=== PATIENT | male | born 1940 | race Caucasian/White ===

== ENCOUNTER 2016-12-23 07:32 | Outpatient (CLI) | payer MEDICARE, BC ==
[2016-12-23 08:35] LABS: ALT (SGPT) 25 U/L (0-55); AST (SGOT) 30 U/L (5-34); Albumin 3.8 g/dL (3.4-4.8); Alkaline Phosphatase 60 U/L (40-150); Anion Gap 14 mmol/L (10-20); BUN (Urea Nitrogen) 18 mg/dL (8.4-25.7); Bilirubin, Total 0.4 mg/dL (0.2-1.2); Calc. Creatinine Clearance 0 mL/min (70-130); Carbon Dioxide 25 mmol/L (23-31); Cardiac Risk 3.1 (Less than 4.5); Chloride 104 mmol/L (98-107); Cholesterol 118 mg/dL (< 200 Desired); Estimated GFR-MDRD 84; Globulin 2.7 g/dL (2.4-3.5); Glucose 99 mg/dL (83-110); HDL Cholesterol 38 mg/dL (>60 Neg Risk); LDL Cholesterol, Calculated 56 mg/dL; Potassium 4.2 mmol/L (3.5-5.1); Protein, Total 6.5 g/dL (5.8-8.1); Sodium 139 mmol/L (136-145); Triglycerides 121 mg/dL (Less than 150)
== END 2016-12-23 07:33 | disposition home or self-care (01) ==
LOC: MADLAB 07:32
PROVIDERS: ATTEND Internal Medicine Cardiovascular Disease
DX: E78.00 Pure hypercholesterolemia, unspecified (principal); I10 Essential (primary) hypertension
CPT/HCPCS: 36415; 80053; 80061

== ENCOUNTER 2017-06-30 08:18 | Outpatient (CLI) | payer MEDICARE, BC ==
[2017-06-30 09:35] LABS: ALT (SGPT) 27 U/L (8-55); AST (SGOT) 28 U/L (5-34); Albumin 3.9 g/dL (3.4-4.8); Alkaline Phosphatase 53 U/L (40-150); Anion Gap 12 mmol/L (10-20); BUN (Urea Nitrogen) 12 mg/dL (8.4-25.7); Bilirubin, Total 0.5 mg/dL (0.2-1.2); Calc. Creatinine Clearance 0 mL/min (70-130); Calcium 9.4 mg/dL (7.8-10.44); Carbon Dioxide 28 mmol/L (23-31); Cardiac Risk 3.2 (Less than 4.5); Chloride 102 mmol/L (98-107); Cholesterol 124 mg/dl (< 200 Desired); Estimated GFR-MDRD 84; Globulin 3.1 g/dL (2.4-3.5); Glucose 94 mg/dL (83-110); HDL Cholesterol 39 mg/dL (>60 Neg Risk); LDL Cholesterol, Calculated 58 mg/dL; Potassium 4.1 mmol/L (3.5-5.1); Sodium 138 mmol/L (136-145); Triglycerides 135 mg/dL (Less than 150)
== END 2017-06-30 08:19 | disposition home or self-care (01) ==
LOC: MADLAB 08:18
PROVIDERS: ATTEND Internal Medicine Cardiovascular Disease
DX: E78.00 Pure hypercholesterolemia, unspecified (principal)
CPT/HCPCS: 36415; 80053; 80061

== ENCOUNTER 2018-03-28 16:49 | Emergency (ER) | payer MEDICARE, BC ==
[~2018-03-28 16:49] MED LIST: Sodium Chloride 0.9% 1,000 ML BAG ONE
[2018-03-28 17:01] LABS: #Basophils 0.1 thou/uL (0.0-0.2); #Eosinphils 0.3 thou/uL (0.0-0.7); #Lymphocytes 0.9 thou/uL (1.20-3.40); #Monocytes 1.1 thou/uL (0.11-0.59); #Neutrophils 6.6 thou/uL (1.40-6.50); %Eosinophils 2.9 % (0.0-10.0); %Lymphocytes 10.4 % (21.0-51.0); %Monocytes 11.8 % (0.0-10.0); %Neutrophils 73.8 % (42.0-75.0); Hemoglobin 12.7 g/dL (14.0-18.0); Mean Corpuscular HGB CONC 33.5 g/dL (32.0-36.0); Mean Corpuscular Volume 92.4 fl (80.0-94.0); Mean Platelet Volume 10.2 fL (7.4-10.4); Platelet Count 193 thou/uL (130-400); RBC Distribution Width 11.9 % (11.5-14.5)
[2018-03-28 17:16] LABS: ALT (SGPT) 17 U/L (8-55); AST (SGOT) 20 U/L (5-34); Albumin 3.6 g/dL (3.4-4.8); Alkaline Phosphatase 55 U/L (40-150); Anion Gap 15 mmol/L (10-20); BUN (Urea Nitrogen) 23 mg/dL (8.4-25.7); Bilirubin, Total 0.6 mg/dL (0.2-1.2); Calc. Creatinine Clearance 0 mL/min (70-130); Carbon Dioxide 24 mmol/L (23-31); Chloride 96 mmol/L (98-107); Estimated GFR-MDRD 52; Globulin 3.4 g/dL (2.4-3.5); Glucose 101 mg/dL (83-110); Potassium 4.1 mmol/L (3.5-5.1); Sodium 131 mmol/L (136-145)
[2018-03-28 17:31] LABS: Bilirubin Moderate (Negative); Blood, Urine Negative (Negative); Clarity Clear (Clear); Glucose, Urine (Dipstick) Negative (Negative); Leukocyte Negative (Negative); Nitrite Negative (Negative); Protein, Urine (Dipstick) 30 mg/dL (Neg-Trace); pH, Urine 5.5 (5.0-9.0)
[2018-03-28 17:34] LABS: Bacteria/HPF None Seen HPF (None Seen); RBC/HPF 0-3 HPF (0-3); Squamous Epithelial 0-3 HPF (0-3); WBC/HPF 0-3 HPF (0-3)
--- NOTE | 2018-03-28 18:00 | RAD ---
TWO VIEW CHEST: HISTORY: Fever. Weakness. Hypertension. COMPARISON: 12/01/2017 FINDINGS: Interstitial markings are increased, especially on the right when compared to the prior study. There is linear stranding in the left lung base, suggesting atelectasis. No confluent consolidation. No significant effusion. Heart size within the normal range with postop sternotomy change. IMPRESSION: Increased interstitial markings bilaterally but more prominent on the right. This is a new finding w hen compared to the prior study. Considerations include interstitial inflammatory process and edema. The vascular markings do not appear significantly congested and, therefore, an interstitial infecti ous process should be considered. Close followup is recommended. POS: [facility]
--- NOTE | 2018-03-28 18:22 | CT ---
CT CHEST WITHOUT CONTRAST: HISTORY: Fever. Weakness. Hypertension. Cough. CORRELATION: Chest film taken earlier today, which showed an abnormal interstitial infiltrate in the right mid afia g. TECHNIQUE: Multiple axial tomograms obtained through the chest without IV enhancement. FINDINGS: CT confirms right lung infiltrate. This does have a predominantly interstitial pattern, although the re are some focal areas of alveolar opacity in the central area of this infiltrative process. This i nfiltrate primarily involves the right upper lobe. There are some chronic changes in the posterior l ower lobes bilaterally, with interstitial changes, probably chronic in this region. There are some small nodular densities seen in the right upper lobe associated with this infiltrate. These may represent incidental pulmonary nodules separate from the infiltrate, although followup is recommended to ensure clearing of the infiltrate and to assess the small pulmonary nodules after devon ring. There is nonspecific mediastinal adenopathy. There is a paratracheal node measuring up to 2 cm in th e enlarged AP window and hilar nodes. Images through the upper abdomen are unremarkable. IMPRESSION: Right upper lobe infiltrate. There are interstitial and alveolar components, and there is scattered nodularity within this infiltrate. Continued followup after treatment is recommended with follow-up CT to reassess these nodular densities. POS: [facility]
[2018-03-28] MEDS ORDERED: Azithromycin 500 MG VIAL ONE (18:53)
[2018-03-28] MEDS ORDERED: cefTRIAXone\\ROCEPHIN 1 GM VIAL ONE (18:53)
== END 2018-03-28 19:14 | disposition short-term general hospital (02) ==
LOC: MADERS 16:49
DX: J15.9 Unspecified bacterial pneumonia (principal); J84.9 Interstitial pulmonary disease, unspecified; E78.5 Hyperlipidemia, unspecified; I10 Essential (primary) hypertension; I25.10 Atherosclerotic heart disease of native coronary artery without angina pectoris; N40.0 Benign prostatic hyperplasia without lower urinary tract symptoms; Z87.891 Personal history of nicotine dependence; Z86.73 Personal history of transient ischemic attack (TIA), and cerebral infarction without residual deficits; Z79.899 Other long term (current) drug therapy; Z79.82 Long term (current) use of aspirin
CPT/HCPCS: 36415; 71046; 71250; 80053; 81003; 81015; 83605; 85025; 87040; 96361; 96374; 96375; J0456; J0696; J7050

== ENCOUNTER 2018-04-19 08:09 | Outpatient (CLI) | payer MEDICARE, BC ==
[2018-04-19 08:47] LABS: #Basophils 0.1 thou/uL (0.0-0.2); #Eosinphils 0.3 thou/uL (0.0-0.7); #Lymphocytes 1.1 thou/uL (1.20-3.40); #Monocytes 0.8 thou/uL (0.11-0.59); #Neutrophils 3.8 thou/uL (1.40-6.50); %Basophils 1.9 % (0.0-1.0); %Eosinophils 5.3 % (0.0-10.0); %Lymphocytes 18.3 % (21.0-51.0); %Monocytes 12.9 % (0.0-10.0); %Neutrophils 61.7 % (42.0-75.0); Hemoglobin 12.9 g/dL (14.0-18.0); Mean Corpuscular HGB CONC 33.4 g/dL (32.0-36.0); Mean Corpuscular Hemoglobin 30.7 pg (27.0-31.0); Mean Corpuscular Volume 91.9 fL (78.0-98.0); Mean Platelet Volume 9.6 fL (7.4-10.4); Platelet Count 240 thou/uL (130-400); RBC Distribution Width 11.9 % (11.5-14.5); Red Blood Cell (RBC) Count 4.19 mill/uL (4.70-6.10); White Blood Cell (WBC) Count 6.2 thou/uL (4.8-10.8)
[2018-04-19 08:48] LABS: ALT (SGPT) 20 U/L (8-55); AST (SGOT) 28 U/L (5-34); Albumin 3.7 g/dL (3.4-4.8); Alkaline Phosphatase 59 U/L (40-150); Anion Gap 14 mmol/L (10-20); BUN (Urea Nitrogen) 12 mg/dL (8.4-25.7); Bilirubin, Total 0.8 mg/dL (0.2-1.2); Calc. Creatinine Clearance 0 mL/min (70-130); Calcium 8.9 mg/dL (7.8-10.44); Carbon Dioxide 23 mmol/L (23-31); Cardiac Risk 3.2 (Less than 4.5); Chloride 102 mmol/L (98-107); Cholesterol 120 mg/dl (< 200 Desired); Estimated GFR-MDRD 82; Globulin 3.1 g/dL (2.4-3.5); Glucose 95 mg/dL (83-110); HDL Cholesterol 38 mg/dL (>60 Neg Risk); LDL Cholesterol, Calculated 44 mg/dL; Potassium 4.1 mmol/L (3.5-5.1); Protein, Total 6.8 g/dL (5.8-8.1); Sodium 135 mmol/L (136-145); Triglycerides 188 mg/dL (Less than 150)
--- NOTE | 2018-04-19 09:09 | RAD ---
PA AND LATERAL VIEWS CHEST: HISTORY: Pneumonia. FINDINGS: Comparison is made with the exam of 03/28/18. There are changes of median sternotomy. The heart size is normal. The aorta is tortuous. The lungs are expanded without lobar consolidation, pneumothorax , or pleural effusions. There are degenerative changes in the spine. IMPRESSION: No radiographic evidence of acute cardiopulmonary process. POS: [facility]
== END 2018-04-19 08:10 | disposition home or self-care (01) ==
LOC: MADLABBHPM 08:09
PROVIDERS: ATTEND Family Medicine
DX: E78.5 Hyperlipidemia, unspecified (principal); I25.10 Atherosclerotic heart disease of native coronary artery without angina pectoris; J18.9 Pneumonia, unspecified organism
CPT/HCPCS: 36415; 71046; 80053; 80061; 84443; 85025

== ENCOUNTER 2018-06-29 09:14 | Emergency (ER) | payer MEDICARE, BC | END 2018-06-29 09:44 | disposition home or self-care (01) | LOC: MADERS 09:14 | DX: M19.041 Primary osteoarthritis, right hand (principal) | CPT/HCPCS: 99283 ==

== ENCOUNTER 2018-07-06 11:42 | Outpatient (CLI) | payer MEDICARE, BC ==
[2018-07-06 12:45] LABS: Uric Acid 8.2 mg/dL (3.5-7.2)
[2018-07-06 17:37] LABS: CRP (Inflammatory) 1.66 mg/dL (= or < 0.5)
[2018-07-08 15:03] LABS: CCP IgG Antibody Greater than 340.0 EliAU/mL (<7 Negative); EliA RAS New Method **** NEW METHOD ****; Rheumatoid Factor IgM Antibody Greater than 200.0 IU/mL (<3.5 Negative)
== END 2018-07-06 11:43 | disposition home or self-care (01) ==
LOC: MADLABBHPM 11:42
PROVIDERS: ATTEND Family Medicine
DX: M65.9 Synovitis and tenosynovitis, unspecified (principal)
CPT/HCPCS: 36415; 83520; 84550; 86140; 86200

== ENCOUNTER 2019-06-17 10:33 | Emergency (ER) | payer MEDICARE, BC ==
[2019-06-17] MEDS ORDERED: Ibuprofen 800 MG TAB ONE (10:58)
[2019-06-17] MEDS ORDERED: Cyclobenzaprine 10 MG TAB ONE (10:58)
== END 2019-06-17 11:02 | disposition home or self-care (01) ==
LOC: MADERS 10:33
DX: S39.82XA Other specified injuries of lower back, initial encounter (principal); I25.10 Atherosclerotic heart disease of native coronary artery without angina pectoris; E78.5 Hyperlipidemia, unspecified; I10 Essential (primary) hypertension; Z79.82 Long term (current) use of aspirin; Z79.899 Other long term (current) drug therapy; X50.9XXA Other and unspecified overexertion or strenuous movements or postures, initial encounter
CPT/HCPCS: 99283

== ENCOUNTER 2019-07-01 15:23 | Emergency (ER) | payer MEDICARE, BC ==
[2019-07-01] MEDS ORDERED: Morphine 2 MG/ML SYRINGE ONE (15:51)
[2019-07-01 15:55] LABS: #Basophils 0.1 thou/uL (0.0-0.2); #Eosinphils 0.2 thou/uL (0.0-0.7); #Lymphocytes 1.2 thou/uL (1.20-3.40); #Monocytes 0.7 thou/uL (0.11-0.59); #Neutrophils 5.7 thou/uL (1.40-6.50); %Basophils 1.4 % (0.0-1.0); %Lymphocytes 14.7 % (21.0-51.0); %Monocytes 8.5 % (0.0-10.0); %Neutrophils 72.4 % (42.0-75.0); Hemoglobin 13.4 g/dL (14.0-18.0); Mean Corpuscular HGB CONC 33.8 g/dL (32.0-36.0); Mean Corpuscular Hemoglobin 31.9 pg (27.0-31.0); Mean Corpuscular Volume 94.5 fL (78.0-98.0); Mean Platelet Volume 9.2 fL (7.4-10.4); Platelet Count 220 thou/uL (130-400); White Blood Cell (WBC) Count 7.9 thou/uL (4.8-10.8)
--- NOTE | 2019-07-01 15:58 | RAD ---
Portable chest: HISTORY: Food stuck in throat. COMPARISON: 04/19/2018 FINDINGS:Lungs appear well aerated. Possible atelectasis in the left lung base near the CP angle. Hea rt and mediastinum unremarkable. IMPRESSION:Possible atelectasis in the left lung base to the CP angle. Chest otherwise unremarkable.
[2019-07-01 16:16] LABS: ALT (SGPT) 59 U/L (8-55); AST (SGOT) 70 U/L (5-34); Albumin 4.1 g/dL (3.4-4.8); Alkaline Phosphatase 62 U/L (40-150); Anion Gap 16 mmol/L (10-20); BUN (Urea Nitrogen) 17 mg/dL (8.4-25.7); Bilirubin, Total 0.3 mg/dL (0.2-1.2); Calc. Creatinine Clearance 0 mL/min (70-130); Calcium 9.5 mg/dL (7.8-10.44); Carbon Dioxide 26 mmol/L (23-31); Chloride 104 mmol/L (98-107); Estimated GFR-MDRD 70; Globulin 3.6 g/dL (2.4-3.5); Glucose 108 mg/dL (83-110); Potassium 4.2 mmol/L (3.5-5.1); Protein, Total 7.7 g/dL (5.8-8.1); Sodium 142 mmol/L (136-145)
--- NOTE | 2019-07-01 16:27 | CT ---
CT CHEST WITHOUT CONTRAST: 07/01/19 INDICATIONS: Something stuck in throat. Vomiting blood. FINDINGS: Lungs appear clear of infiltrate. There is interstitial thickening in the lung bases which is stable when compared to prior exam of 03/28/18. Review of the mediastinum reveals a dilated fluid filled esophagus to the level of the EG junction. T here could be a food bolus at this location due to luminal narrowing obstructing the esophagus. Recom mend esophagoscopy. No adenopathy. Images through upper abdomen unremarkable. IMPRESSION: Dilated fluid filled esophagus to the EG junction. Distal esophageal stricture or obstructing food devora paul would be suspected. POS: [facility]
[2019-07-01] MEDS ORDERED: Ondansetron PF 4 MG/2 ML Vial ONE (16:57)
[2019-07-01] MEDS ORDERED: Morphine 4 MG/ML VIAL ONE (16:57)
== END 2019-07-01 20:20 | disposition short-term general hospital (02) ==
LOC: MADERS 15:23
DX: K22.2 Esophageal obstruction (principal); I25.10 Atherosclerotic heart disease of native coronary artery without angina pectoris; E78.5 Hyperlipidemia, unspecified; I10 Essential (primary) hypertension; Z79.82 Long term (current) use of aspirin; Z79.899 Other long term (current) drug therapy; Z95.5 Presence of coronary angioplasty implant and graft
CPT/HCPCS: 71045; 71250; 80053; 84484; 85025; 93005; 96361; 96374; 96375; 96376; J2270; J2405; J7050

== ENCOUNTER 2020-02-06 09:52 | Outpatient (CLI) | payer MEDICARE, BC ==
--- NOTE | 2020-02-06 10:33 | RAD ---
CHEST 2 VIEWS: Date: 02/06/2020 HISTORY: Preoperative evaluation. COMPARISON: 07/01/2019. FINDINGS: Heart size is within normal limits. Postop midline sternotomy. Slight blunting of left costophrenic a ngle. IMPRESSION: No significant acute intrathoracic disease. Postop midline sternotomy. POS: [facility]
[2020-02-06 10:57] LABS: #Basophils 0.1 thou/uL (0.0-0.2); #Eosinphils 0.3 thou/uL (0.0-0.7); #Lymphocytes 1.4 thou/uL (1.20-3.40); #Monocytes 0.9 thou/uL (0.11-0.59); #Neutrophils 3.8 thou/uL (1.40-6.50); %Basophils 1.7 % (0.0-1.0); %Eosinophils 4.5 % (0.0-10.0); %Lymphocytes 21.9 % (21.0-51.0); %Monocytes 13.4 % (0.0-10.0); %Neutrophils 58.5 % (42.0-75.0); Hemoglobin 13.2 g/dL (14.0-18.0); Mean Corpuscular HGB CONC 31.4 g/dL (32.0-36.0); Mean Corpuscular Hemoglobin 30.7 pg (27.0-31.0); Mean Corpuscular Volume 97.8 fL (78.0-98.0); Mean Platelet Volume 10.7 fL (7.4-10.4); Platelet Count 217 thou/uL (130-400); RBC Distribution Width 12.7 % (11.5-14.5); Red Blood Cell (RBC) Count 4.31 mill/uL (4.70-6.10); White Blood Cell (WBC) Count 6.5 thou/uL (4.8-10.8)
[2020-02-06 14:53] LABS: ALT (SGPT) 26 U/L (8-55); AST (SGOT) 33 U/L (5-34); Albumin 3.9 g/dL (3.4-4.8); Alkaline Phosphatase 57 U/L (40-110); Anion Gap 13 mmol/L (10-20); BUN (Urea Nitrogen) 13 mg/dL (8.4-25.7); Bilirubin, Total 0.5 mg/dL (0.2-1.2); Calc. Creatinine Clearance 0 mL/min (70-130); Calcium 8.7 mg/dL (7.8-10.44); Carbon Dioxide 25 mmol/L (23-31); Chloride 104 mmol/L (98-107); Estimated GFR-MDRD 77; Globulin 3.3 g/dL (2.4-3.5); Glucose 89 mg/dL (83-110); Potassium 3.9 mmol/L (3.5-5.1); Protein, Total 7.2 g/dL (5.8-8.1); Sodium 138 mmol/L (136-145)
== END 2020-02-06 09:53 | disposition home or self-care (01) ==
LOC: MADLAB 09:52
PROVIDERS: ATTEND Internal Medicine Cardiovascular Disease
DX: Z01.818 Encounter for other preprocedural examination (principal); E78.00 Pure hypercholesterolemia, unspecified; I11.9 Hypertensive heart disease without heart failure; R06.02 Shortness of breath; I48.91 Unspecified atrial fibrillation; R94.39 Abnormal result of other cardiovascular function study; Z98.890 Other specified postprocedural states
CPT/HCPCS: 36415; 71046; 80053; 85025

== ENCOUNTER 2021-01-20 13:06 | Outpatient (CLI) | payer MEDICARE, BC | END 2021-01-20 13:07 | disposition home or self-care (01) | LOC: MADRAD 13:06 | PROVIDERS: ATTEND Nurse Practitioner Family | DX: R06.00 Dyspnea, unspecified (principal); J44.9 Chronic obstructive pulmonary disease, unspecified; I70.90 Unspecified atherosclerosis | CPT/HCPCS: 71046 ==